=== PATIENT | female | born 1970 | race Caucasian/White ===

== ENCOUNTER → 2017-10-28 14:06 | Outpatient (CLI) | payer OTHER, SELFPAY ==
[2017-10-28 15:04] LABS: Hematocrit 41.6 % (37-47); Hemoglobin 14.8 g/dl (12.0-15.0); Mean Corp Hgb Conc 35.6 g/gl (32-36); Mean Corpuscular Hgb 31.2 pg (27.0-32.0); Mean Corpuscular Volume 87.6 fL (81-99); Mean Platelet Vol. 10.3 fl (6.2-12.0); Platelet Count 282 K/mm3 (150-450); RBC Distribution Width CV 12.4 % (11.6-14.6); Red Blood Count 4.75 M/mm3 (4.2-5.4); White Blood Count 7.6 K/mm3 (4.4-11.0)
[2017-10-28 15:05] LABS: Scan Indicated on CBC? Y/N NO
[2017-10-28 15:22] LABS: Erythrocyte Sedimentation Rate 1 mm/hr (0-20)
[2017-10-28 15:35] LABS: Vitamin B12 354 pg/mL (211-911)
[2017-10-28 15:50] LABS: ALB/GLOB Ratio 1.4 RATIO (0.9-2.4); AST(SGOT) 17 U/L (15-37); Alanine Aminotransfer ALT/SGPT 28 U/L (13-56); Albumin, Serum 4.1 g/dL (3.2-5.0); Alkaline Phosphatase 53 U/L (45-117); Anion Gap 8 (5-15); BUN 9 mg/dL (7-18); BUN/Creat Ratio 12.8 RATIO (10-20); CRP < 2.90 mg/L (0.0-3.0); Calcium,Total 8.7 mg/dL (8.5-10.1); Chloride 106 mmol/L (98-107); EST Glomerular Filtration Rate 96 mL/min (>60); Est Glom Filt Rate - Afr Amer 116 mL/min (>60); Ferritin 101 ng/mL (8-252); Free T3 2.7 pg/mL (2.18-3.98); Globulin 2.9 g/dL (2.2-4.2); Glucose 98 mg/dL (74-106); Magnesium 2.3 mg/dL (1.6-2.6); Potassium 3.9 mmol/L (3.5-5.1); Sodium Level 140 mmol/L (136-145); T4 Free Direct 0.97 ng/dL (0.76-1.46); Thyroid Stim Hormone (TSH) 0.86 uIU/mL (0.358-3.74)
== END ==
PROVIDERS: Family Provider Family Medicine; PCP Family Medicine; Visit Provider Nurse Practitioner Acute Care
DX: G47.00 Insomnia, unspecified (principal)
CPT/HCPCS: 36415; 80053; 82306; 82607; 82728; 82746; 83735; 84100; 84439; 84443; 84481; 85027; 85652; 86140

== ENCOUNTER → 2019-06-21 20:34 | Outpatient (CLI) | payer OTHER, SELFPAY | PROVIDERS: Family Provider Family Medicine; PCP Family Medicine; Referring Provider Nurse Practitioner Family; Visit Provider Nurse Practitioner Family | DX: G47.33 Obstructive sleep apnea (adult) (pediatric) (principal) | CPT/HCPCS: 95810 ==

== ENCOUNTER 2020-04-01 00:35 | Emergency (ER) | payer OTHER, SELFPAY ==
[2020-04-01 00:36] VITALS: BP 153/91; PULSE 95; RESP 15; TEMP 36.3; O2SAT 96; BMI 26.2
--- NOTE | 2020-04-01 00:45 | ED.VIS.GEN ---
History of Present Illness Chief Complaint: Upper Extremity Injury Narrative: Patient is a 49-year-old female who presents with left shoulder pain. She states I think I may have dislocated my shoulder. She complains of atraumatic left shoulder pain for 2 days. She reports a history of calcific tendinitis. She has had previous steroid injections of the shoulder last being about 2 weeks ago. She has not had any unusual increased activity. No specific trauma or injury. She began to have increasing left shoulder pain and contacted her primary care physician who prescribed Toradol. Past Medical History - Allergies and Home Meds Allergies/Adverse Reactions: Allergies Penicillins Allergy (Verified 04/01/20 00:39) Unknown Primary Care Physician: Chaz Bhagat MD [Primary Care Provider] - Past Medical History: - - Calcific tendinitis Smoking Status: Never smoker Review of Systems All systems negative except as indicated General: Denies: Fever Eyes: Denies: Visual changes - bilaterally ENT: Denies: Bilateral ear pain Cardiovascular: Denies: Chest pain Respiratory: Denies: Dyspnea Gastrointestinal: Denies: Vomiting Musculoskeletal: Reports: - - Left shoulder pain Skin: Denies: Rash Neurological: Denies: Headache Physical Exam Vital Signs/Narrative: Vital Signs Temp Pulse Resp BP Pulse Ox 04/01/20 00:36 97.4 F L 95 15 153/91 H 96 Inital Vital Signs reviewed: Yes General: Well nourished Head: Normocephalic Eyes: EOMI ENT: Moist mucous membranes Neck: Supple Cardiovascular: Regular rate Respiratory: No distress Extremities: - - Limited painful range of motion of the left shoulder no deformity she has diffuse nonfocal tenderness it is not hot to the touch her erythematous she is neurovascularly intact distally with normal sensation motor function and a palpable pulse. Skin: Normal color Neurological: Alert Psychological: Normal affect Diagnostic/Tx/Re-eval Impressions Shoulder X-Ray 04/01/20 00:59 IMPRESSION: There is periarticular soft tissue calcification consistent with a calcific tendinitis. Electronically Signed: Caitie Kim, at 2:29 EDT Tel , Service support , 04/01/20 00:59 Shoulder min 2 Views [RAD] Stat - Medical Decision Making X-ray findings as above are consistent with calcific tendinitis. Patient was given [place] here. I did provide a prescription for short course of the same and patient was advised to follow-up with her orthopedic surgeon. ED Disposition - Plan for ED Patient: Disposition: [facility] Unit Diagnosis: Calcific tendonitis of left shoulder Instructions: ED Tendinitis Calcific Prescriptions: Hydrocodone Bitart/Apap 5-325 [[place] 5MG-325MG] 1 tab PO Q6H PRN PRN 3 Days #10 tab PRN Reason: Pain Prescription Printed Referrals: Chaz Bhagat MD [Primary Care Provider] -
--- NOTE | 2020-04-01 00:59 | RAD_ITS ---
STUDY: X-RAY - LEFT SHOULDER REASON FOR EXAM: Female, 49 years old. LEFT SHOULDER PAIN SINCE THURSDAY. PAIN IS LATERAL AT HEAD OF HUMERUS. PT SAID SHE HAD A CORTIZONE SHOT IN LEFT SHOULDER February AND NO INJURY SINCE THE SHOT TECHNIQUE: view(s) of the shoulder. COMPARISON: None. FINDINGS: Normal glenohumeral articulation. Normal acromioclavicular joint. Normal acromion. Normal humeral head and visualized proximal humerus. There is periarticular soft tissue calcification consistent with a calcific tendinitis. Normal visualized pulmonary apex. RAD/Shoulder min 2 Views IMPRESSION: There is periarticular soft tissue calcification consistent with a calcific tendinitis. Electronically Signed: Caitie Kim, at 2:29 EDT Tel , Service support ,
[2020-04-01] MEDS: HYDROcodone Bitartrate/Apap 5/325 Tablet PO (01:14)
[2020-04-01 02:37] VITALS: BP 114/74; PULSE 70; RESP 15; O2SAT 95
== END 2020-04-01 02:37 | disposition home or self-care (01) ==
PROVIDERS: Emergency Provider Emergency Medicine; PCP Family Medicine
DX: M75.32 Calcific tendinitis of left shoulder (principal); Z88.0 Allergy status to penicillin
CPT/HCPCS: 73030; 99283

== ENCOUNTER → 2020-04-18 15:45 | Outpatient (CLI) | payer OTHER, SELFPAY ==
[2020-04-01 00:36] VITALS: BMI 26.2
--- NOTE | 2020-04-18 16:01 | EKG12_ITS ---
Test Reason : PREOP Blood Pressure : / mmHG Vent. Rate : 070 BPM Atrial Rate : 070 BPM P-R Int : 150 ms QRS Dur : 078 ms QT Int : 376 ms P-R-T Axes : 061 043 029 degrees QTc Int : 406 ms Normal sinus rhythm with sinus arrhythmia Normal ECG Confirmed by ZE AREVALO ([id number]), sound editor MALI VILLATORO ([id number]) on 04/20/2020 2:39:48 PM Referred By: Judith Mckinney Confirmed By:ZE AREVALO
[2020-04-18 17:03] LABS: Absolute Lymphocyte Count 2.41 X10^3/uL (0.83-4.51); Absolute Neutrophil Count 5.4 X10^3/uL (2.0-7.7); Basophil# 0.06 X10^3/uL; Basophil% 0.7 % (0-1); Eosinophil# 0.08 X10^3/uL; Hematocrit 40.9 % (37-47); Hemoglobin 14.2 g/dL (12.0-15.0); Lymphocyte # 2.41 X10^3/ul (4.0); Lymphocyte % 28.7 % (19-41); Mean Corp Hgb Conc 34.7 g/dL (32-36); Mean Corpuscular Hgb 31.6 pg (27.0-32.0); Mean Corpuscular Volume 90.9 fL (81-99); Monocyte# 0.47 X10^3/uL; Monocyte% 5.6 % (0-10); NRBC Flagged by Analyzer 0 % (0-5); Neutrophil # 5.35 X10^3/uL (2.7-7.7); Neutrophil % 63.8 % (47-70); Platelet Count 361 K/mm3 (150-450); RBC Distribution Width CV 13.3 % (11.6-14.6); RBC Distribution Width SD 43.8 fl (35.1-43.9); White Blood Count 8.4 K/mm3 (4.4-11.0)
[2020-04-18 17:27] LABS: Anion Gap 4 (5-15); BUN 10 mg/dL (7-18); BUN/Creat Ratio 13.5 RATIO (10-20); Calcium,Total 8.8 mg/dL (8.5-10.1); Chloride 106 mmol/L (98-107); Creatinine, Serum 0.74 mg/dL (0.55-1.02); EST Glomerular Filtration Rate 89 mL/min (>60); Est Glom Filt Rate - Afr Amer 108 mL/min (>60); Glucose 88 mg/dL (74-106); Potassium 3.5 mmol/L (3.5-5.1); Sodium Level 138 mmol/L (136-145)
== END ==
PROVIDERS: PCP Family Medicine; Referring Provider Registered Nurse; Visit Provider Registered Nurse
DX: Z01.818 Encounter for other preprocedural examination (principal); Z01.810 Encounter for preprocedural cardiovascular examination
CPT/HCPCS: 36415; 80048; 85025; 93005

== ENCOUNTER → 2020-04-20 17:51 | Outpatient (CLI) | payer OTHER, SELFPAY ==
[2020-04-01 00:36] VITALS: BMI 26.2
== END ==
PROVIDERS: PCP Family Medicine; Referring Provider Registered Nurse; Visit Provider Registered Nurse
DX: Z11.59 Encounter for screening for other viral diseases (principal)
CPT/HCPCS: 87635; 94799; U0003